=== PATIENT | female | born 1975 | race Caucasian/White ===

== ENCOUNTER 2017-06-22 12:00 | Emergency (ER) | payer OTHER ==
[~2017-06-22 12:00] MED LIST: ALBUTEROL; METOPROLOL SUCC50 M1 PO; QVAR0.08 MG/Ac IH
[2017-06-22 13:13] LABS: BASOPHIL % 0.5 % (0-2); PLATELET COUNT 232 x10^3mcL (130-400); RED CELL DISTRIBUTION WIDTH 13.5 % (11.5-14.5)
[2017-06-22 13:21] LABS: CALCIUM 8.8 mg/dL (8.5-10.1); CARBON DIOXIDE 29.6 mmol/L (21-32); CHLORIDE SERUM 103 mmol/L (98-107); CREATININE SERUM 0.7 mg/dL (0.6-1.0); GFR1 > 60 mL/min; GLUCOSE SERUM 114 mg/dL (74-106); POTASSIUM SERUM 4.2 mmol/L (3.5-5.1); SODIUM SERUM 137 mmol/L (136-145)
[2017-06-22 13:27] LABS: ALBUMIN 3.5 g/dL (3.4-5.0); ALKALINE PHOSPHATASE 91 U/L (46-116); ALT/SGPT 43 U/L (14-59); AST/SGOT 15 U/L (15-37); BILIRUBIN TOTAL 0.6 mg/dL (0.20-1.00); TOTAL PROTEIN, SERUM 7.3 g/dL (6.4-8.2)
[2017-06-22 13:37] LABS: CK-MB < 0.5 ng/mL (0-3.6); CREATINE KINASE 65 U/L (26-192)
[2017-06-22 13:44] LABS: AMPHETAMINE QUAL UR NONE DETECTED (NEG <=1000)
[2017-06-22 14:46] VITALS: BP 148/90
== END 2017-06-22 14:46 | disposition home or self-care (01) ==
LOC: ED 12:00
PROVIDERS: Emergency Medicine
DX: R53.1 Weakness (principal); J45.909 Unspecified asthma, uncomplicated; I10 Essential (primary) hypertension; R20.0 Anesthesia of skin; R06.02 Shortness of breath; Z79.899 Other long term (current) drug therapy; Z79.51 Long term (current) use of inhaled steroids
CPT/HCPCS: 36415; G0480; Q0092

== ENCOUNTER 2019-07-22 12:48 | Emergency (ER) | payer OTHER ==
[~2019-07-22] VITALS: Ht 170.2 cm; Wt 121.6 kg
[2019-07-22 12:52] VITALS: Ht 170.2 cm; Wt 121.6 kg
[2019-07-22 13:17] LABS: PLATELET COUNT 244 x10^3mcL (130-400); RED CELL DISTRIBUTION WIDTH 13.1 % (11.5-14.5)
[2019-07-22 13:31] LABS: CALCIUM 8.8 mg/dL (8.5-10.1); CARBON DIOXIDE 28.9 mmol/L (21-32); CHLORIDE SERUM 104 mmol/L (98-107); CREATININE SERUM 0.8 mg/dL (0.6-1.0); GFR1 > 60 mL/min; GLUCOSE SERUM 98 mg/dL (74-106); POTASSIUM SERUM 3.7 mmol/L (3.5-5.1); SODIUM SERUM 141 mmol/L (136-145)
[2019-07-22 13:36] LABS: ALBUMIN 3.6 g/dL (3.4-5.0); ALKALINE PHOSPHATASE 84 U/L (46-116); ALT/SGPT 33 U/L (14-59); AST/SGOT 12 U/L (15-37); BILIRUBIN TOTAL 0.76 mg/dL (0.20-1.00); LIPASE 94 IU/L (73-393); TOTAL PROTEIN, SERUM 7.5 g/dL (6.4-8.2)
[2019-07-22 15:04] LABS: BAND NEUTROPHIL 0 % (0-10); BASOPHIL 0 % (0-2); MONOCYTE 6 % (0-7); SEGMENTED NEUTROPHILS 77 % (37-75)
[2019-07-22 15:05] LABS: PLATELET MORPHOLOGY PLATELETS DECREASED
[2019-07-22 15:06] LABS: rbc morphology (normal/abnorm) ABNORMAL (NORMAL)
[2019-07-22 17:14] VITALS: BP 156/89
== END 2019-07-22 17:14 | disposition home or self-care (01) ==
LOC: ED 12:48
PROVIDERS: Emergency Medicine
DX: R10.11 Right upper quadrant pain (principal); R11.0 Nausea; J45.909 Unspecified asthma, uncomplicated; I10 Essential (primary) hypertension; Z90.49 Acquired absence of other specified parts of digestive tract; Z90.89 Acquired absence of other organs
CPT/HCPCS: 36415; J1885; Q0092

== ENCOUNTER 2019-09-14 12:15 | Emergency (ER) | payer OTHER ==
[~2019-09-14] VITALS: Ht 170.2 cm; Wt 117.9 kg
[2019-09-14 12:19] VITALS: Ht 170.2 cm; Wt 117.9 kg
[2019-09-14 13:36] VITALS: BP 164/89
== END 2019-09-14 13:36 | disposition home or self-care (01) ==
LOC: ED 12:15
DX: M54.42 Lumbago with sciatica, left side (principal); J45.909 Unspecified asthma, uncomplicated; I10 Essential (primary) hypertension; Z90.49 Acquired absence of other specified parts of digestive tract; Z90.89 Acquired absence of other organs
CPT/HCPCS: J1885